=== PATIENT | female | born 1980 | race Caucasian/White ===

== ENCOUNTER 2024-03-01 09:55 | Emergency (ER) | payer OTHER ==
[~2024-03-01] VITALS: Ht 157.5 cm; Wt 100.5 kg
[2024-03-01 10:01] VITALS: BP 172/83; PULSE 80; RESP 16; TEMP 97.8; O2SAT 98
[2024-03-01] MEDS: KETOROLAC 30 MG/ML VIAL IM ONE (11:53)
[2024-03-01] MEDS ORDERED: NAPR-337 PO (12:26)
[2024-03-01 12:54] VITALS: BP 172/83; PULSE 80; RESP 16; TEMP 97.8; O2SAT 98
== END 2024-03-01 12:55 | disposition home or self-care (01) ==
LOC: MED 09:55
DX: M25.531 Pain in right wrist (principal); R03.0 Elevated blood-pressure reading, without diagnosis of hypertension; M19.90 Unspecified osteoarthritis, unspecified site; Z90.49 Acquired absence of other specified parts of digestive tract; Z98.890 Other specified postprocedural states; Z79.899 Other long term (current) drug therapy; Z88.5 Allergy status to narcotic agent
CPT/HCPCS: 29125; 73130; 81025; 96372; 99283; J1885